=== PATIENT | male | born 1995 | race Caucasian/White ===

== ENCOUNTER 2016-11-10 16:43 | Outpatient (CLI) | payer OTHER | END 2016-11-10 16:44 | disposition EMS.NT | DX: H57.12 Ocular pain, left eye (principal); Y04.2XXA Assault by strike against or bumped into by another person, initial encounter; Y92.812 Truck as the place of occurrence of the external cause ==

== ENCOUNTER 2016-11-12 16:56 | Emergency (ER) | payer OTHER | END 2016-11-12 19:28 | disposition home or self-care (01) | DX: S06.0X0A Concussion without loss of consciousness, initial encounter (principal); S05.12XA Contusion of eyeball and orbital tissues, left eye, initial encounter; Y09 Assault by unspecified means; Y92.89 Other specified places as the place of occurrence of the external cause; Y99.0 Civilian activity done for income or pay; F17.200 Nicotine dependence, unspecified, uncomplicated ==

== ENCOUNTER 2017-12-06 17:34 | Emergency (ER) | payer OTHER ==
[2017-12-06] MEDS ORDERED: TETANUS/DIPHTHERIA/PERTUSSIS 0.5 ML SYRINGE IM ONE (17:39)
--- NOTE | 2017-12-06 17:41 | ED Physician Documentation ---
PD HPI UPPER EXT INJURY - Stated complaint Stated Complaint: LT HAND/FINGER INJ - History obtained from History obtained from: Patient - History of Present Illness Location: Other (He accidentally sprayed the back of his left hand using a washer and crusher tender while working 2 days ago and had some blisters there that popped open with purulent material. There is no pain, he mostly is here because he needs a note that says he can return to work. He is not up-to-date on tetanus.) Review of Systems Constitutional: denies: Fever, Chills, Myalgias GI: denies: Abdominal Pain, Nausea, Vomiting Skin: reports: Reviewed and negative PD PAST MEDICAL HISTORY - Past Medical History Cardiovascular: None Respiratory: None Neuro: None Endocrine/Autoimmune: None GI: None : Kidney stones HEENT: None Psych: None Musculoskeletal: None Derm: None - Past Surgical History Past Surgical History: No - Present Medications Home Medications: Ambulatory Orders Medication Instructions Recorded Confirmed Cephalexin [Keflex] 500 mg PO Q6H 10 Days capsule 04/02/16 Cephalexin [Keflex] 500 mg PO QID #20 capsule 12/06/17 - Allergies Allergies/Adverse Reactions: Allergies Allergy/AdvReac Type Severity Reaction Status Date / Time No Known Drug Allergies Allergy Verified 11/13/16 21:00 - Social History Does the pt smoke?: Yes Smoking Status: Current every day smoker Does the pt drink ETOH?: No Does the pt have substance abuse?: No - Immunizations Immunizations are current?: Yes - POLST Patient has POLST: No PD ED PE NORMAL - Vitals Vital signs reviewed: Yes - General General: Alert and oriented X 3, No acute distress - Extremities Extremities: Other (On the dorsum of the left hand over the third and fourth digits there is some abrasions just proximal to the PIPs with no obvious infection but he says pus was coming out of them. There is no tenderness and he has full range of motion.) - Neuro Neuro: Alert and oriented X 3, Normal speech Results - Vitals Vitals: Oxygen O2 Source Room air Departure - Departure Disposition: 01 Home, Self Care Clinical Impression: Abrasion, hand Qualifiers: Encounter type: initial encounter Laterality: left Qualified Code(s): S60.512A - Abrasion of left hand, initial encounter Condition: Good Record reviewed to determine appropriate education?: Yes Instructions: ED Abrasion Prescriptions: Cephalexin [Keflex] 500 mg PO QID #20 capsule Comments: Come back for any signs of infection which would include: Redness, swelling, drainage, increased pain, or fevers. Forms: Activity restrictions
[2017-12-06 18:10] VITALS: BP 137/73
== END 2017-12-06 18:07 | disposition home or self-care (01) ==
LOC: ED 17:34
DX: S60.512A Abrasion of left hand, initial encounter (principal); W23.0XXA Caught, crushed, jammed, or pinched between moving objects, initial encounter; F17.200 Nicotine dependence, unspecified, uncomplicated; Z23 Encounter for immunization
CPT/HCPCS: 90471; 99283